=== PATIENT | female | born 1950 | race Caucasian/White ===

== ENCOUNTER 2022-08-20 06:07 | Day surgery (SDC) | payer MEDICARE, OTHER ==
[2022-08-20] MEDS ORDERED: Propofol 200 MG/20 ML SDV IV ONE (06:08)
[2022-08-20] MEDS ORDERED: Lidocaine 2% 5 ML SDV IV ONE (06:08)
[2022-08-20] MEDS ORDERED: Sodium Chloride 0.9% 10 ML Syringe FLUSH PRN (06:15)
[2022-08-20] MEDS ORDERED: Lactated Ringers 1,000 ML IV SCH (06:15)
== END 2022-08-20 08:45 | disposition home or self-care (01) ==
LOC: FB.SDS 06:07
PROVIDERS: ATTEND Surgery
DX: Z12.11 Encounter for screening for malignant neoplasm of colon (principal); K57.30 Diverticulosis of large intestine without perforation or abscess without bleeding; M19.90 Unspecified osteoarthritis, unspecified site; H26.9 Unspecified cataract; K21.9 Gastro-esophageal reflux disease without esophagitis; R01.1 Cardiac murmur, unspecified; N95.0 Postmenopausal bleeding; Z90.710 Acquired absence of both cervix and uterus; Z79.899 Other long term (current) drug therapy
CPT/HCPCS: 00731; J2704; J7120

== ENCOUNTER 2024-05-19 10:20 | Emergency (ER) | payer MEDICARE, OTHER ==
[2024-05-19] MEDS: Sodium Chloride 0.9% 1,000 ML IV ONE (11:04)
[2024-05-19 11:06] LABS: HEMATOCRIT 26.6 % (34.2-48.2); HEMOGLOBIN 8.9 g/dL (11.4-15.5); MEAN CORPUSCULAR HEMOGLOBIN 32.7 pg (23.9-33.9); MEAN CORPUSCULAR HGB CONC 33.6 g/dL (31.9-34.8); MEAN CORPUSCULAR VOLUME 97.5 fL (76.7-100.5); MEAN PLATELET VOLUME 6.8 fL (7.1-12.4); PLATELET COUNT,PLT 282 x10(3)uL (151-488); RED BLOOD CELL COUNT 2.73 x10(6)uL (3.60-5.20); RED CELL DISTRIBUTION WIDTH 13.1 % (12.3-16.5); WHITE BLOOD CELL COUNT,WBC 15.1 x10-3/uL (3.0-10.3)
[2024-05-19 11:17] LABS: BLOOD UREA NITROGEN,BUN 51 mg/dL (7-18); BUN/CREATININE RATIO 28.3 (9-20); CARBON DIOXIDE,CO2 26 mmol/L (21-32); CHLORIDE,CL 101 mmol/L (100-110); CREATININE 1.8 mg/dL (0.55-1.02); ESTIMATED GFR 29 mL/min (>60); GLUCOSE RANDOM 128 mg/dL (80-116); POTASSIUM,K 3.4 mmol/L (3.5-5.3); SODIUM,NA 140 mmol/L (135-145)
[2024-05-19 11:27] LABS: A/G RATIO 0.5; ALANINE AMINOTRANSFERASE,ALT 18 U/L (12-36); ALBUMIN 2.5 g/dL (3.2-4.6); ALKALINE PHOSPHATASE 59 IU/L (56-112); ASPARTATE AMNIOTRANSFERASE,AST 28 IU/L (5-25); BILIRUBIN TOTAL 0.4 mg/dL (0.1-1.3); PROTEIN TOTAL,TP 7.5 g/dL (6.0-8.0)
[2024-05-19 11:35] LABS: BAND PERCENT MAN 2 % (0-6); LYMPHOCYTES PERCENT MAN 14 % (13-37); MONOCYTES PERCENT MAN 7 % (4-12); SEG NEUTROPHILS PERCENT MAN 77 % (46-82)
[2024-05-19] MEDS: Potassium Chloride 20 MEQ Tab.ER PO ONE (12:25)
[2024-05-19] MEDS: Magnesium Sulf/Wat 2 GM/50 mL 2 GM in Premix Bag 1 BAG IV ONE ×2 (12:25→15:22)
[2024-05-19 12:31] LABS: BILIRUBIN,URINE NEGATIVE (NEGATIVE); GLUCOSE,URINE NORMAL (NORMAL); KETONES,URINE NEGATIVE (NEGATIVE); LEUKOCYTE ESTERASE,URINE LARGE (NEGATIVE); NITRITE,URINE NEGATIVE (NEGATIVE); OCCULT BLOOD,URINE LARGE (NEGATIVE); PROTEIN,URINE 30 mg/dL (NEGATIVE); UROBILINOGEN,URINE NORMAL (NEGATIVE)
[2024-05-19 12:35] LABS: APPEARANCE,URINE SLIGHTLY CLOUDY (CLEAR); COLOR,URINE YELLOW (YELLOW)
[2024-05-19 12:41] LABS: BACTERIA,URINE FEW (NS); SQUAMOUS EPITHELIAL CELLS,UR OCCASIONAL (NS,R,O); WBC,URINE 20-30 (0-5)
[2024-05-19] MEDS: cefTRIAXone 2 GM Vial IVPUSH ONE (17:00)
== END 2024-05-19 17:15 | disposition home or self-care (01) ==
LOC: FB.ED 10:20
DX: E83.42 Hypomagnesemia (principal); N39.0 Urinary tract infection, site not specified; R42 Dizziness and giddiness
CPT/HCPCS: 36415; 80053; 81001; 83735; 84443; 84484; 85025; 87086; 87088; 87186; 93005; 96361; 96365; 96366; 96375; 99285; A9270; J0696; J3475; J7030